=== PATIENT | female | born 1980 | race Asian ===

== ENCOUNTER 2018-10-22 12:36 | Emergency (ER) | payer SELFPAY ==
[~2018-10-22] VITALS: Ht 170.2 cm; Wt 54.4 kg
[2018-10-22] MEDS ORDERED: NKM (12:52)
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
[2018-10-22 13:04] VITALS: BP 121/77
[2018-10-22] MEDS ORDERED: Tetanus/Diptheria/Pertussis IM ONE (13:30)
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
[2018-10-22] MEDS ORDERED: BACTRIM DS TAB1 EAC1 ORAL (13:35)
[2018-10-22 13:54] VITALS: BP 121/77
--- NOTE | 2018-10-22 13:56 | NUR ---
patient had tetanus shot no reaction noted discharged home with instruction and rx steri strip to wound with dermabond applied.verbalize understanding and need for follow up
--- NOTE | 2018-10-22 15:02 | Diagnostic Imaging Report ---
Indication: Right elbow pain Findings: 3 views of the right elbow were obtained. No acute fractures, malalignment, erosions or periostitis are identified. Soft tissues are unremarkable. Impression: Negative for acute injury
== END 2018-10-22 13:58 | disposition home or self-care (01) ==
LOC: EMR 13:29
DX: S51.011A Laceration without foreign body of right elbow, initial encounter (principal); W05.1XXA Fall from non-moving nonmotorized scooter, initial encounter; Y92.9 Unspecified place or not applicable; Z23 Encounter for immunization
CPT/HCPCS: 90471; 90715; 99283